=== PATIENT | female | born 1960 | race Caucasian/White ===

== ENCOUNTER 2017-12-18 08:00 | Outpatient (CLI) | payer OTHER ==
[2017-12-18 12:58] LABS: THYROID STIMULATING HORMONE 7.03 uIU/mL (0.34-5.60)
[2017-12-18 12:59] LABS: BASOPHILS # (AUTO) 0.1 10^3/uL (0.0-0.1); BASOPHILS % (AUTO) 0.7 %; EOSINOPHILS # (AUTO) 0.5 10^3/uL (0.0-0.7); HGB - HEMOGLOBIN 14.3 g/dL (12.0-16.0); LYMPHOCYTES # (AUTO) 2.9 10^3/uL (1.5-3.5); LYMPHOCYTES % (AUTO) 29.2 %; MEAN CORPUSCULAR HEMOGLOBIN 28.5 pg (27.0-31.0); MEAN CORPUSCULAR HGB CONC 32.6 g/dL (32.0-36.0); MEAN CORPUSCULAR VOLUME 87.3 fL (81.0-99.0); MEAN PLATELET VOLUME 8.2 fL (7.9-10.8); MONOCYTES # (AUTO) 0.5 10^3/uL (0.0-1.0); MONOCYTES % (AUTO) 4.9 %; NEUTROPHILS # (AUTO) 6.1 10^3/uL (1.5-6.6); NEUTROPHILS % (AUTO) 60.2 %; PLT - PLATELET COUNT 341 10^3/uL (130-450); RED BLOOD COUNT 5.04 10^6/uL (4.20-5.40); RED CELL DISTRIBUTION WIDTH 14.2 % (12.0-15.0); WHITE BLOOD COUNT 10.1 x10^3/uL (4.8-10.8)
[2017-12-18 13:06] LABS: ALBUMIN 4.2 g/dL (3.2-5.5); ALBUMIN/GLOBULIN RATIO 1.3 (1.0-2.2); ALKALINE PHOSPHATASE 83 IU/L (42-121); ALT ALANINE AMINOTRANSFERASE 15 IU/L (10-60); AST ASPARTATE AMINOTRANSFERASE 20 IU/L (10-42); BILIRUBIN,TOTAL 0.3 mg/dL (0.2-1.0); BUN - BLOOD UREA NITROGEN 15 mg/dL (6-20); CALCIUM 9.1 mg/dL (8.5-10.3); CARBON DIOXIDE - CO2 30 mmol/L (21-32); CHLORIDE 100 mmol/L (101-111); CHOL/HDL RATIO 6.9 (<4.4); CHOLESTEROL 241 mg/dL; CREATININE 0.7 mg/dL (0.4-1.0); GFR - MDRD 87 (>89); GLUCOSE 95 mg/dL (70-100); HDL CHOLESTEROL 35 mg/dL; LDL CHOLESTEROL,CALCULATED 146 mg/dL; LDL/HDL RATIO 4.2 (<4.4); SODIUM 136 mmol/L (135-145); TOTAL PROTEIN 7.4 g/dL (6.7-8.2); VLDL CHOLESTEROL 60 mg/dL
[2017-12-18 13:35] LABS: FREE T4 (FREE THYROXINE) 0.79 ng/dL (0.58-1.64)
== END 2017-12-18 08:01 | disposition home or self-care (01) ==
LOC: LAB.WCP 08:00
PROVIDERS: ATTEND Physician Assistant Medical
DX: I10 Essential (primary) hypertension (principal); E78.5 Hyperlipidemia, unspecified; E03.9 Hypothyroidism, unspecified
CPT/HCPCS: 36415; 80053; 80061; 83721; 84439; 84443; 85025

== ENCOUNTER 2019-11-15 12:53 | Outpatient (CLI) | payer OTHER | END 2019-11-15 12:54 | disposition home or self-care (01) | LOC: RT 12:53 | PROVIDERS: ATTEND Obstetrics & Gynecology | DX: I10 Essential (primary) hypertension (principal) | CPT/HCPCS: 93005 ==

== ENCOUNTER 2020-02-01 12:00 | Outpatient (CLI) | payer OTHER | END 2020-02-01 12:01 | disposition home or self-care (01) | LOC: DI 12:00 | PROVIDERS: ATTEND Obstetrics & Gynecology | DX: I11.9 Hypertensive heart disease without heart failure (principal); I27.20 Pulmonary hypertension, unspecified | CPT/HCPCS: 93306 ==

== ENCOUNTER 2020-02-18 16:06 | Outpatient (CLI) | payer OTHER ==
--- NOTE | 2020-02-18 17:09 | XRAY Report ---
Reason: Hypoxemia Procedure Date: 02/18/2020 Accession Number: [id number] / [id number] Procedure: XR - Chest 2 View X-Ray CPT Code: 34553 Final Report FULL RESULT: EXAM: CHEST RADIOGRAPHY EXAM DATE: 02/18/2020 04:43 PM. CLINICAL HISTORY: Hypoxemia. COMPARISON: None. TECHNIQUE: 2 views. FINDINGS: Lungs/Pleura: No focal opacities evident. No pleural effusion. No pneumothorax. Normal volumes. Mediastinum: Heart and mediastinal contours are unremarkable. Other: A couple of sternotomy wires are noted. IMPRESSION: No acute cardiopulmonary disease seen. [facility]
== END 2020-02-18 16:07 | disposition home or self-care (01) ==
LOC: DI 16:06
PROVIDERS: ATTEND Obstetrics & Gynecology
DX: R09.02 Hypoxemia (principal)
CPT/HCPCS: 71046

== ENCOUNTER 2021-06-18 14:29 | Outpatient (CLI) | payer OTHER | END 2021-06-18 14:30 | disposition home or self-care (01) | LOC: DI 14:29 | PROVIDERS: ATTEND Obstetrics & Gynecology | DX: I10 Essential (primary) hypertension (principal) | CPT/HCPCS: 93306 ==